=== PATIENT | female | born 1945 | race Caucasian/White ===

== ENCOUNTER 2019-10-04 11:16 | Inpatient (IN) | payer OTHER ==
[~2019-10-04] VITALS: Ht 170.2 cm; Wt 77.1 kg
[~2019-10-04 11:16] MED LIST: ALTOPREV40 M2 PO; AMLODIPINE BESYL5 M2 PO; ASPIR 8181 MG PO; LASIX20 MG PO; LEVOXYL0.05 MG PO; LOPRESSOR50 M1 PO; LOSARTAN POTASS1 TA6 PO; MULTAQ400 MG PO; PRO40 PO; SING10 PO; [UNRECOGNIZED DRUG - CODE] PO
[2019-10-04 12:04] VITALS: BP 122/63
[2019-10-04 22:43] VITALS: BP 125/63
[2019-10-05 05:57] VITALS: BP 117/58
[2019-10-05 06:35] LABS: BASOPHIL % 0.5 % (0-2); PLATELET COUNT 130 x10^3mcL (130-400); RED CELL DISTRIBUTION WIDTH 13.9 % (11.5-14.5)
[2019-10-05 06:50] LABS: CALCIUM 8.1 mg/dL (8.5-10.1); CARBON DIOXIDE 29.6 mmol/L (21-32); CHLORIDE SERUM 107 mmol/L (98-107); GLUCOSE SERUM 114 mg/dL (74-106); POTASSIUM SERUM 4.4 mmol/L (3.5-5.1); SODIUM SERUM 141 mmol/L (136-145)
[2019-10-05 07:57] VITALS: BP 115/41
[2019-10-05 12:30] VITALS: BP 83/38
[2019-10-05 16:20] VITALS: BP 94/49
[2019-10-05 16:25] VITALS: BP 94/49
== END 2019-10-05 17:04 | disposition home or self-care (01) | DRG 470 ==
LOC: MU 11:16 → DU 16:30 → MU 19:50
PROVIDERS: ADMIT Orthopaedic Surgery
PROC: 0SRB03A Replacement of Left Hip Joint with Ceramic Synthetic Substitute, Uncemented, Open Approach (ICD-10-PCS; principal; 2019-10-04 16:30)
DX: M16.12 Unilateral primary osteoarthritis, left hip (principal); Z88.2 Allergy status to sulfonamides; I10 Essential (primary) hypertension; I25.2 Old myocardial infarction; I48.91 Unspecified atrial fibrillation; M10.9 Gout, unspecified; Z90.710 Acquired absence of both cervix and uterus; Z90.49 Acquired absence of other specified parts of digestive tract
CPT/HCPCS: 97110-GP; 97116-GP; G0378; J0690; J1885; J2175; J2250; J2270; J2405; J3010; J3490; J7030; Q0092